=== PATIENT | male | born 1960 | race Two or more races ===

== ENCOUNTER 2017-01-23 18:16 | Observation (INO) | payer OTHER ==
[~2017-01-23] VITALS: Ht 167.6 cm; Wt 74.5 kg
[~2017-01-23 18:16] MED LIST: EFFIENT10 MG PO; EFFIENT5 MG PO; GLYBURIDE5 MG PO; LIPITOR40 MG PO; LISINOPRIL5 MG PO; LITE COAT ASPI325 M1 PO; METFORMIN HCL1000 MG PO; METOPROLOL TART50 MG PO
[2017-01-23 19:49] LABS: HEMATOCRIT 41.7 % (38.0-50.0); MCH 28.2 PG (29.0-34.0); MCHC 33.1 G/DL (30.0-36.0); MCV 85.1 FL (86-99); MEAN PLAT.VOLUME 10.9 uM^3 (9.0-12.4); PLATELET COUNT 228 K/uL (156-360); RBC DIS.WIDTH-CV 13.5 % (11.8-14.6); RBC DIS.WIDTH-SD 41.7 % (39-53); WHITE BLOOD COUNT 8.8 K/uL (4.1-10.2)
[2017-01-23 19:57] LABS: CHLORIDE 106 mEq/L (99-109); POTASSIUM 4.1 mEq/L (3.7-5.4); SODIUM 140 mEq/L (136-147)
[2017-01-23 19:58] LABS: GLUCOSE 68 mg/dL (70-99)
[2017-01-23 20:00] LABS: ANION GAP 9 MEQ/L (2-14)
[2017-01-23 20:02] LABS: GFR ESTIMATE (CALCULATED) > 59 mL/min/
[2017-01-23 20:03] LABS: UREA NITROGEN (BUN) 19 mg/dL (9-23)
[2017-01-23 20:10] LABS: TROP-I INTERPRETATION NEGATIVE; TROPONIN-I < 0.01 ng/mL (0.0-0.30)
[2017-01-23] MEDS ORDERED: TRADJENTA5 MG PO (20:47)
[2017-01-23 22:52] LABS: HDL CHOLESTEROL 36 MG/DL (Desirable>=40); LDL CHOLESTEROL 43 mg/dL (Desirable<100); NON-HDL CHOLESTEROL 75 mg/dL (Desirable<160); TOTAL CHOLESTEROL 111 mg/dL (Desirable<200); TRIGLYCERIDES 158 MG/DL (Normal: <150)
[2017-01-23 23:38] VITALS: BP 115/63
[2017-01-24 03:24] LABS: HEMATOCRIT 39.6 % (38.0-50.0); MCH 28.5 PG (29.0-34.0); MCHC 33.8 G/DL (30.0-36.0); MCV 84.1 FL (86-99); MEAN PLAT.VOLUME 10.8 uM^3 (9.0-12.4); PLATELET COUNT 214 K/uL (156-360); RBC DIS.WIDTH-CV 13.2 % (11.8-14.6); RBC DIS.WIDTH-SD 40.7 % (39-53); RED BLOOD COUNT 4.71 M/uL (4.00-5.50); WHITE BLOOD COUNT 8.2 K/uL (4.1-10.2)
[2017-01-24 03:33] LABS: CHLORIDE 108 mEq/L (99-109); POTASSIUM 3.9 mEq/L (3.7-5.4); SODIUM 141 mEq/L (136-147)
[2017-01-24 03:35] LABS: GLUCOSE 148 mg/dL (70-99)
[2017-01-24 03:36] LABS: ANION GAP 8 MEQ/L (2-14)
[2017-01-24 03:37] LABS: TOTAL BILIRUBIN 0.3 mg/dL (0.0-1.0)
[2017-01-24 03:38] LABS: ALKALINE PHOSPHATASE 80 IU/L (3-129)
[2017-01-24 03:39] LABS: GFR ESTIMATE (CALCULATED) > 59 mL/min/
[2017-01-24 03:40] LABS: UREA NITROGEN (BUN) 16 mg/dL (9-23)
[2017-01-24 03:45] LABS: TROP-I INTERPRETATION NEGATIVE; TROPONIN-I < 0.01 ng/mL (0.0-0.30)
[2017-01-24 04:08] LABS: POINT-OF-CARE METER ID UU13113700
[2017-01-24 04:16] VITALS: BP 110/55
[2017-01-24 08:12] VITALS: BP 99/51
[2017-01-24 09:46] LABS: TROP-I INTERPRETATION NEGATIVE; TROPONIN-I < 0.01 ng/mL (0.0-0.30)
== END 2017-01-24 12:31 | disposition home or self-care (01) ==
LOC: EME 18:16 → 5WEST 20:59 → EDOF 20:59 → ENRESERV 21:02 → 5WEST 22:47 → ENPENDDIS 01-24 → 5WEST 01-24 12:31
PROVIDERS: Internal Medicine
DX: R07.9 Chest pain, unspecified (principal); I10 Essential (primary) hypertension; E11.9 Type 2 diabetes mellitus without complications; I25.10 Atherosclerotic heart disease of native coronary artery without angina pectoris; I25.2 Old myocardial infarction; Z95.5 Presence of coronary angioplasty implant and graft; E78.5 Hyperlipidemia, unspecified; F17.210 Nicotine dependence, cigarettes, uncomplicated; Z79.82 Long term (current) use of aspirin; Z79.4 Long term (current) use of insulin; Z79.84 Long term (current) use of oral hypoglycemic drugs
CPT/HCPCS: 71020; 80048; 80053; 80061; 82948; 84484; 85027; 93005; 99281; 99285; G0378; J1644; J1815